=== PATIENT | female | born 1950 | race Caucasian/White ===

== ENCOUNTER → 2017-07-08 | Outpatient (CLI) | payer MEDICAID ==
[~2017-07-08] MED LIST: ACET650S13 PO; ALPR.25T PO; ATEN100T88 PO; ATRV10T PO; DIPH25TA82 PO; FLUO20SO PO; IBUP-15 PO; IBUP-30 PO; IBUP1TAB PO; LORA5TAB9 PO; LTN005OP2 OU; LVT.025T PO; PRD10T PO; PRD50T PO; TRAMADOL PO
--- NOTE | 2017-07-08 15:04 | Diagnostic Imaging Report ---
INDICATION: Routine screening. COMPARISON: 12/06/2014. TECHNIQUE: Screening digital mammography was performed bilaterally with a Computer Aided Detection (CAD) system. FINDINGS: Moderate parenchymal density is noted bilaterally. The overall parenchymal pattern is stable. No dominant mass or malignant appearing microcalcifications are seen. The axillae are unremarkable. IMPRESSION: No mammographic features suspicious for malignancy are identified. ACR BI-RADS Category 1: Negative. Result letter will be mailed to the patient. Note: At least 10% of breast cancer is not imaged by mammography. Dictated by: Dictated on workstation # [id number]
== END ==
LOC: RAD 09:46
PROVIDERS: ATTEND Nurse Practitioner Family
DX: Z12.31 Encounter for screening mammogram for malignant neoplasm of breast (principal)
CPT/HCPCS: 77067

== ENCOUNTER → 2017-10-27 | Outpatient (CLI) | payer MEDICAID ==
--- NOTE | 2017-10-27 17:23 | Diagnostic Imaging Report ---
EXAMINATION: DEXA scan. INDICATION: Screening for osteoporosis. The bone mineral density of the spine and right hip was measured. 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 The previous exam of 10/22/2010 is not available for direct comparison. The report from that exam noted that the T score for the spine was -0.1. On this exam, however, the T score for the spine is -1.6. This value does indicate osteopenia. On the previous exam, the T score for the right hip was -1.1. On this exam, the T score is now -2.5 which is at the lowest range of osteoporosis. IMPRESSION: The bone mineral density of both the spine and the right hip has decreased since the prior exam. There is now osteopenia of the spine and borderline osteoporosis of the right hip. Dictated by: Dictated on workstation # [id number]
== END ==
LOC: RAD 08:59
PROVIDERS: ATTEND Nurse Practitioner Family
DX: Z13.820 Encounter for screening for osteoporosis (principal); M85.88 Other specified disorders of bone density and structure, other site
CPT/HCPCS: 77080

== ENCOUNTER → 2019-11-23 | Outpatient (CLI) | payer MEDICAID ==
--- NOTE | 2019-11-23 14:26 | Diagnostic Imaging Report ---
INDICATION: Screening mammography EXAMINATION: 2-D and 3-D digital screening with CAD. COMPARISONS: 06/2017, 11/2014 FINDINGS: Scattered fibroglandular densities unchanged. No breast mass, spiculated lesion, architectural distortion or suspicious calcifications. No interval change. IMPRESSION: Stable negative mammogram. BI-RADS Category 1 ACR BI-RADS Category 1: Negative. Result letter will be mailed to the patient. Note: At least 10% of breast cancer is not imaged by mammography. Dictated by: Dictated on workstation # [id number]
== END ==
LOC: RAD 10:37
PROVIDERS: ATTEND Nurse Practitioner Family
DX: Z12.31 Encounter for screening mammogram for malignant neoplasm of breast (principal)
CPT/HCPCS: 77063; 77067

== ENCOUNTER → 2021-01-09 | Outpatient (CLI) | payer MEDICAID ==
--- NOTE | 2021-01-09 10:28 | Diagnostic Imaging Report ---
INDICATION: 2-D and 3-D digital screening with CAD. Compared with exams 11/2019, 06/2017 and 11/2014. FINDINGS: Scattered fibrolinear densities in the breast are present with no mass, architectural distortion, spiculated lesion or suspicious calcifications. IMPRESSION: Stable negative mammogram BI-RADS Category 1 ACR BI-RADS Category 1: Negative. Result letter will be mailed to the patient. Note: At least 10% of breast cancer is not imaged by mammography. Dictated by: Dictated on workstation # [id number]
== END ==
LOC: RAD 08:30
PROVIDERS: ATTEND Nurse Practitioner
DX: Z12.31 Encounter for screening mammogram for malignant neoplasm of breast (principal)
CPT/HCPCS: 77063; 77067

== ENCOUNTER → 2021-10-27 | Outpatient (CLI) | payer MEDICAID ==
--- NOTE | 2021-10-27 17:10 | Diagnostic Imaging Report ---
INDICATION: Postmenopausal screening COMPARISON: 10/27/2017 FINDINGS: AP Spine L1-L4: [BMD (g/cm2): 0.912] [T-Score: -2.4] [Z-Score: -1.0] [BMD Previous: 1.007] [BMD % Change: -9.4] LT Hip Neck: [BMD (g/cm2): na] [T-Score: na] [Z-Score: na] LT Hip Total: [BMD (g/cm2):na] [T-Score:na] [Z-Score: na] [BMD Previous: na] [BMD % Change: na] RT Hip Neck: [BMD (g/cm2):na] [T-Score:na] [Z-Score:na] RT Hip Total: [BMD (g/cm2):na] [T-score:na] [Z-Score:na] [BMD Previous:na] [BMD % Change:na] *Indicates significant change from prior examination based on 95% confidence level. World Health Organization criteria for BMD interpretation classify patients as Normal (T-score at or above -1.0), Osteopenic (T-score between -1.0 and -2.5) or Osteoporotic (T-score at or below -2.5). LIMITATIONS AND MODIFICATION: None. FRACTURE RISK (FRAX SCORE): The ten year probability of (%): Major Osteoporotic Fracture: [na] Hip Fracture: [na] IMPRESSION: 1. Osteopenia (Low bone mass). 2. True comparison is difficult given previous evaluation of the hip with a current evaluation performed in the radius and ulna. There has been interval worsening of the T score within the lumbar spine. 3. See below National Osteoporosis Foundation guidelines on when to potentially initiate pharmacologic therapy. Based on the National Osteoporosis Foundation Guidelines, pharmacologic treatment should be initiated in any of the following, unless clinical conditions suggest otherwise: * Any patient with prior fragility fracture of the hip or vertebrae. A spine fracture indicates 5X risk for subsequent spine fracture and 2X risk for subsequent hip fracture. * Osteoporosis (T-score <-2.5). * Postmenopausal women and men age 50 and older with low bone mass/osteopenia (T-score between -1.0 and -2.5) by DXA and 10-year major osteoporotic fracture greater than 20% or a 10-year probability of hip fracture greater than 3%. These fracture risks are supplied above in the FRAX score, if applicable. * Clinician judgement and/or patient preferences may indicate treatment for people with 10-year fracture probabilities above or below these levels. Dictated by: Dictated on workstation # [id number]
== END ==
LOC: RAD 13:30
PROVIDERS: ATTEND Nurse Practitioner
DX: Z13.820 Encounter for screening for osteoporosis (principal); M85.80 Other specified disorders of bone density and structure, unspecified site; Z78.0 Asymptomatic menopausal state
CPT/HCPCS: 77080

== ENCOUNTER → 2022-01-15 | Outpatient (CLI) | payer MEDICAID ==
--- NOTE | 2022-01-15 15:29 | Diagnostic Imaging Report ---
3D bilateral screening mammogram with CAD. This study was compared to the prior exam of 01/09/2021, 11/23/2019 and 07/08/2017. At this time there are no current complaints. The current study was also evaluated with a Computer Aided Detection (CAD) system. FINDINGS: There are scattered fibroglandular densities in both breasts which could obscure a lesion. Overall, there does not appear to have been any significant change when compared to the prior exam. No primary or secondary sign of malignancy is noted. IMPRESSION: There is no radiographic evidence for malignancy ACR BI-RADS Category 1: Negative. Result letter will be mailed to the patient. Note: At least 10% of breast cancer is not imaged by mammography. Dictated by: Dictated on workstation # [id number]
== END ==
LOC: RAD 09:24
PROVIDERS: ATTEND Nurse Practitioner
DX: Z12.31 Encounter for screening mammogram for malignant neoplasm of breast (principal)
CPT/HCPCS: 77063; 77067